=== PATIENT | male | born 1955 | race African-American/Black ===

== ENCOUNTER 2017-06-21 16:47 | Emergency (ER) | payer MEDICAID ==
[~2017-06-21] VITALS: Ht 177.8 cm; Wt 78.0 kg
[~2017-06-21 16:47] MED LIST: ALPR0.5T PO; AMLO2.5T45 PO; ATEN50TA PO; AZILECT PO; BENA20TA3 PO; METF500T4 PO; REQ1 PO; RYTARY PO
[2017-06-21 21:55] VITALS: BP 152/94
== END 2017-06-21 22:09 | disposition home or self-care (01) ==
LOC: ER 17:04
DX: F41.0 Panic disorder [episodic paroxysmal anxiety] (principal); E11.9 Type 2 diabetes mellitus without complications; I10 Essential (primary) hypertension; G20 Parkinson's disease
CPT/HCPCS: 93005; 99283

== ENCOUNTER 2018-06-03 19:52 | Inpatient (IN) | payer MEDICAID ==
[~2018-06-03] VITALS: Ht 185.4 cm; Wt 86.6 kg
[~2018-06-03 19:52] MED LIST changes: +BENA20TA10 PO; -BENA20TA3 PO; -METF500T4 PO; +METF500T6 PO
[2018-06-03] MEDS ORDERED: SODIUM CHLORIDE 0.9% 1,000 ML IV ONE (21:52)
[2018-06-03 22:10] LABS: BASOPHILS % 0.2 % (0.0-2.0); EOSINOPHILS % 0.9 % (0.0-5.0); HEMATOCRIT. 27.9 % (42.0-52.0); HEMOGLOBIN. 9.7 g/dL (14.0-18.0); LYMPHOCYTES % 7.1 % (20.0-50.0); MEAN CORPUSCULAR HEMOGLOBIN 32.4 pg (28.0-32.0); MEAN CORPUSCULAR VOLUME 93.6 fL (80.0-94.0); MEAN PLATELET VOLUME 7.7 fl (7.4-10.4); MONOCYTES % 9.9 % (2.0-8.0); NEUTROPHILS % 81.9 % (40.0-76.0); PLATELET 183 x1000/uL (130-400); RED BLOOD CELL COUNT 2.98 mill/uL (4.7-6.1); RED CELL DISTRIBUTION WIDTH 11.9 % (11.6-14.6)
[2018-06-03 22:15] LABS: CHLORIDE 98 mEq/L (98-107)
[2018-06-03 22:20] LABS: INR 1.1; PROTHROMBIN TIME 10.6 sec (9.1-11.1)
[2018-06-03 23:09] LABS: CLARITY URINE CLOUDY (CLEAR); COLOR URINE YELLOW (YELLOW); KETONES URINE NEGATIVE (NEGATIVE); LEUKOCYTE ESTERASE URINE TRACE (NEGATIVE); NITRITE URINE NEGATIVE (NEGATIVE); OCCULT BLOOD URINE 3+ (NEGATIVE); PROTEIN URINE 3+ (NEGATIVE); SPECIFIC GRAVITY URINE 1.012 (1.005-1.030)
[2018-06-04] MEDS ORDERED: LEVOFLOXACIN 750MG PREMIX 150 ML IV ONE (01:00)
[2018-06-04] MEDS ORDERED: SODIUM CHLORIDE 0.9% 500 ML IV SCH (04:30)
[2018-06-04 06:17] VITALS: BP 129/75
[2018-06-04 08:00] VITALS: BP 121/61
[2018-06-04] MEDS: PIPERACILLIN/TAZ 3.375G PREMIX 50 ML IV SCH ×3 (08:32→21:46)
[2018-06-04] MEDS ORDERED: ACETAMINOPHEN 325MG TABLET PO PRN (09:30)
[2018-06-04 12:00] VITALS: BP 115/48
[2018-06-04] MEDS ORDERED: SODIUM CHLORIDE 0.45% 1,000 ML IV SCH (15:18)
[2018-06-04] MEDS ORDERED: IPRATROPIUM/ALBUTEROL 0.5-3(2.5)MG/3ML NEB INH PRN (15:30)
[2018-06-04] MEDS ORDERED: ONDANSETRON HCL 4MG/2ML INJ IV PRN (15:30)
[2018-06-04] MEDS ORDERED: HYDROCODONE/ACETAMINOPHEN 5/325MG TABLET PO PRN (15:30)
[2018-06-04] MEDS ORDERED: CLONIDINE 0.1MG TABLET PO PRN (15:30)
[2018-06-04 16:00] VITALS: BP 117/49
[2018-06-04] MEDS: ENOXAPARIN 40MG/0.4ML SYR SUBCUT SCH (16:00)
[2018-06-04] MEDS: ROPINIROLE HCL 1MG TABLET PO SCH (17:48)
[2018-06-04] MEDS: RYTARY PO SCH ×2 (17:49→21:46)
[2018-06-04] MEDS: DEXT 5%/0.45% NACL 1000ML 1,000 ML IV SCH (19:39)
[2018-06-04 20:00] VITALS: BP 129/67
[2018-06-04] MEDS ORDERED: DEXTROSE 50% WATER 50ML SYRINGE IV PRN (20:15)
[2018-06-04] MEDS: INSULIN LISPRO 100 UNITS/ML SUBCUT SCH (21:00)
[2018-06-04] MEDS: BLOOD SUGAR DIAGNOSTIC STRIP TEST SCH (21:46)
[2018-06-05] VITALS: BP 125/60
[2018-06-05 00:27] LABS: CHLORIDE 103 mEq/L (98-107)
[2018-06-05 00:36] LABS: CREATINE KINASE 322 IU/L (39-308)
[2018-06-05] MEDS: PIPERACILLIN/TAZ 3.375G PREMIX 50 ML IV SCH ×4 (03:32→21:05)
[2018-06-05 04:00] VITALS: BP 112/82
[2018-06-05] MEDS: RYTARY PO SCH ×6 (06:05→21:12)
[2018-06-05] MEDS: INSULIN LISPRO 100 UNITS/ML SUBCUT SCH ×4 (06:17→21:16)
[2018-06-05] MEDS: BLOOD SUGAR DIAGNOSTIC STRIP TEST SCH ×4 (06:17→21:12)
[2018-06-05 08:00] VITALS: BP 144/71
[2018-06-05 08:09] LABS: HEMATOCRIT. 24.5 % (42.0-52.0); HEMOGLOBIN. 8.6 g/dL (14.0-18.0); MEAN CORPUSCULAR HEMOGLOBIN 33.1 pg (28.0-32.0); MEAN CORPUSCULAR VOLUME 94.5 fL (80.0-94.0); MEAN PLATELET VOLUME 7.7 fl (7.4-10.4); PLATELET 149 x1000/uL (130-400); RED BLOOD CELL COUNT 2.59 mill/uL (4.7-6.1); RED CELL DISTRIBUTION WIDTH 11.7 % (11.6-14.6)
[2018-06-05] MEDS: ROPINIROLE HCL 1MG TABLET PO SCH ×3 (09:18→18:10)
[2018-06-05] MEDS: RASAGILINE 1 MG PO SCH (09:22)
[2018-06-05 09:52] LABS: T4 FREE 1.77 ng/dL (0.76-1.46)
[2018-06-05 12:00] VITALS: BP 122/58
[2018-06-05] MEDS: DEXT 5%/0.45% NACL 1000ML 1,000 ML IV SCH (12:30)
[2018-06-05 15:23] LABS: BG BASE EXCESS 1.8 mmol/L (-2.0-2.0); BG CARBOXYHEMOGLOBIN 0.3 % (0.5-1.5); BG DEOXYHEMOGLOBIN 6.9 % (0.0-5.0); BG FRACTION INSPIRED OXYGEN 21; BG HCO3 ACT 25.6 mmol/L (22.0-26.0); BG METHEMOGLOBIN 0.3 % (0.0-1.5); BG OXYGEN SATURATION 93.1 % (92.0-98.5); BG OXYHEMOGLOBIN 92.5 % (94.0-97.0); BG PCO2 36.5 mmHg (35.0-45.0); BG PH 7.463 (7.350-7.450); BG PO2 65.3 mmHg (75.0-100.0); BG SAMPLE SITE RIGHT RADIAL; BG TOTAL HEMOGLOBIN 9.4 g/dL (12.0-18.0); BG VENT MODE ROOM AIR
[2018-06-05 16:00] VITALS: BP 126/60
[2018-06-05 16:21] LABS: PLATELET ESTIMATE NORMAL
[2018-06-05] MEDS: ENOXAPARIN 40MG/0.4ML SYR SUBCUT SCH (17:04)
[2018-06-05 17:22] LABS: CHLORIDE 103 mEq/L (98-107)
[2018-06-05 20:00] VITALS: BP 128/62
[2018-06-06] VITALS: BP 126/57
[2018-06-06] MEDS: DEXT 5%/0.45% NACL 1000ML 1,000 ML IV SCH ×2 (00:25→16:53)
[2018-06-06] MEDS: PIPERACILLIN/TAZ 3.375G PREMIX 50 ML IV SCH ×4 (03:05→20:20)
[2018-06-06 04:00] VITALS: BP 132/57
[2018-06-06] MEDS: RYTARY PO SCH ×6 (06:27→22:26)
[2018-06-06] MEDS: INSULIN LISPRO 100 UNITS/ML SUBCUT SCH ×4 (06:35→20:30)
[2018-06-06] MEDS: BLOOD SUGAR DIAGNOSTIC STRIP TEST SCH ×4 (06:35→20:30)
[2018-06-06 08:00] VITALS: BP 114/54
[2018-06-06 08:16] LABS: HEMATOCRIT 26.2 % (42.0-52.0); HEMOGLOBIN 8.9 g/dL (14.0-18.0); MEAN CORPUSCULAR HEMOGLOBIN 32.1 pg (28.0-32.0); MEAN CORPUSCULAR VOLUME 94.6 fL (80.0-94.0); PLATELET 163 x1000/uL (130-400); RED BLOOD CELL COUNT 2.76 mill/uL (4.7-6.1); RED CELL DISTRIBUTION WIDTH 11.8 % (11.6-14.6)
[2018-06-06] MEDS ORDERED: DIATR MEGLU/DIATRIZOATE SOLN 30ML PO SCH (08:30)
[2018-06-06] MEDS: ROPINIROLE HCL 1MG TABLET PO SCH ×3 (08:59→19:02)
[2018-06-06] MEDS: RASAGILINE 1 MG PO SCH (09:00)
[2018-06-06 09:08] LABS: CHLORIDE 104 mEq/L (98-107)
[2018-06-06] MEDS: OMEPRAZOLE 20MG CAPSULE EXTENDED RELEASE PO SCH (09:08)
[2018-06-06 09:44] LABS: TOTAL IRON BINDING CAPACITY 216 ug/dL (250-450)
[2018-06-06 12:00] VITALS: BP 136/61
[2018-06-06 13:16] LABS: FERRITIN 788 ng/mL (22-322)
[2018-06-06 13:20] LABS: FOLIC ACID (FOLATE) SERUM >20 ng/mL ng/mL (>5.38)
[2018-06-06] MEDS ORDERED: DOCUSATE SODIUM SUGAR FREE 100MG/10ML UDC NG SCH (13:30)
[2018-06-06 13:31] LABS: VITAMIN B12 SERUM 620 pg/mL (211-911)
[2018-06-06] MEDS ORDERED: IOHEXOL-300 100 ML BOTTLE ONE (14:33)
[2018-06-06 16:00] VITALS: BP 132/65
[2018-06-06] MEDS: ENOXAPARIN 40MG/0.4ML SYR SUBCUT SCH (16:49)
[2018-06-06] MEDS: FERROUS SULFATE 325MG TABLET PO SCH (19:02)
[2018-06-06 20:00] VITALS: BP 139/70
[2018-06-06] MEDS ORDERED: BISACODYL 5MG TABLET PO NR (20:00)
[2018-06-06] MEDS ORDERED: METOCLOPRAMIDE HCL 10MG/2ML VIAL IV NR (20:00)
[2018-06-06] MEDS ORDERED: SORBITOL 70% SOLN 30ML PO NR (21:00)
[2018-06-07] VITALS: BP 136/70
[2018-06-07] MEDS ORDERED: SORBITOL 70% SOLN 30ML PO NR ×3 (01:00→22:30)
[2018-06-07] MEDS ORDERED: BISACODYL 5MG TABLET PO NR ×3 (03:30→21:07)
[2018-06-07] MEDS ORDERED: METOCLOPRAMIDE HCL 10MG/2ML VIAL IV NR ×3 (03:30→22:00)
[2018-06-07] MEDS: PIPERACILLIN/TAZ 3.375G PREMIX 50 ML IV SCH ×4 (03:35→21:33)
[2018-06-07 04:00] VITALS: BP 142/82
[2018-06-07] MEDS: ACETAMINOPHEN 325MG TABLET PO PRN (04:50)
[2018-06-07] MEDS: OMEPRAZOLE 20MG CAPSULE EXTENDED RELEASE PO SCH (06:22)
[2018-06-07] MEDS: RYTARY PO SCH ×3 (06:22→22:12)
[2018-06-07] MEDS: BLOOD SUGAR DIAGNOSTIC STRIP TEST SCH ×4 (06:22→21:33)
[2018-06-07] MEDS: FERROUS SULFATE 325MG TABLET PO SCH ×3 (06:23→18:04)
[2018-06-07] MEDS: INSULIN LISPRO 100 UNITS/ML SUBCUT SCH ×4 (06:23→21:00)
[2018-06-07 07:21] LABS: INR 1.1; PARTIAL THROMBOPLASTIN TIME 30.6 sec (23.4-31.0); PROTHROMBIN TIME 11.4 sec (9.1-11.1)
[2018-06-07 07:40] LABS: HEMATOCRIT 24.3 % (42.0-52.0); HEMOGLOBIN 8.4 g/dL (14.0-18.0); MEAN CORPUSCULAR HEMOGLOBIN 32.2 pg (28.0-32.0); MEAN CORPUSCULAR VOLUME 93.6 fL (80.0-94.0); PLATELET 163 x1000/uL (130-400); RED BLOOD CELL COUNT 2.59 mill/uL (4.7-6.1); RED CELL DISTRIBUTION WIDTH 11.9 % (11.6-14.6)
[2018-06-07 08:00] VITALS: BP 144/66
[2018-06-07 08:13] LABS: CHLORIDE 104 mEq/L (98-107)
[2018-06-07] MEDS: ROPINIROLE HCL 1MG TABLET PO SCH ×3 (09:00→18:05)
[2018-06-07] MEDS ORDERED: MIDAZOLAM HCL 5 MG/5 ML VIAL ONE (14:38)
[2018-06-07] MEDS ORDERED: FENTANYL CITRATE/PF 50MCG/ML 2ML VIAL ONE (14:40)
[2018-06-07] MEDS: RASAGILINE 1 MG PO SCH (15:12)
[2018-06-07 16:00] VITALS: BP 138/75
[2018-06-07] MEDS: ENOXAPARIN 40MG/0.4ML SYR SUBCUT SCH (16:00)
[2018-06-07] MEDS ORDERED: POLYETHYLENE GLYCOL-ELECTROLYTE 4000ML NG ONE (16:30)
[2018-06-07] MEDS ORDERED: SORBITOL 70% SOLN 30ML PO SCH (16:30)
[2018-06-07] MEDS: DEXT 5%/0.45% NACL 1000ML 1,000 ML IV SCH (16:39)
[2018-06-07 20:00] VITALS: BP 147/77
[2018-06-07] MEDS ORDERED: POTASSIUM CHLORIDE 20MEQ/PACKET PO NR (21:13)
[2018-06-07] MEDS ORDERED: LORAZEPAM 2MG/ML CPJ IV PRN (21:45)
[2018-06-07] MEDS: DEXT 5%/0.45% NACL KCL 20MEQ/L 1,000 ML IV SCH (22:11)
[2018-06-08] VITALS: BP 156/79
[2018-06-08] MEDS: PIPERACILLIN/TAZ 3.375G PREMIX 50 ML IV SCH ×4 (02:00→21:45)
[2018-06-08 04:00] VITALS: BP 139/65
[2018-06-08] MEDS: ACETAMINOPHEN 325MG TABLET PO PRN (04:10)
[2018-06-08 05:43] LABS: HEMATOCRIT. 24.7 % (42.0-52.0); HEMOGLOBIN. 8.6 g/dL (14.0-18.0); MEAN CORPUSCULAR HEMOGLOBIN 32.8 pg (28.0-32.0); MEAN CORPUSCULAR VOLUME 93.7 fL (80.0-94.0); MEAN PLATELET VOLUME 7.6 fl (7.4-10.4); PLATELET 172 x1000/uL (130-400); RED BLOOD CELL COUNT 2.63 mill/uL (4.7-6.1); RED CELL DISTRIBUTION WIDTH 11.6 % (11.6-14.6)
[2018-06-08 05:59] LABS: CHLORIDE 112 mEq/L (98-107)
[2018-06-08] MEDS: BLOOD SUGAR DIAGNOSTIC STRIP TEST SCH ×4 (06:04→21:00)
[2018-06-08] MEDS: INSULIN LISPRO 100 UNITS/ML SUBCUT SCH ×4 (06:04→21:00)
[2018-06-08 06:55] LABS: BG BASE EXCESS 1.6 mmol/L (-2.0-2.0); BG DEOXYHEMOGLOBIN 4.8 % (0.0-5.0); BG HCO3 ACT 25.5 mmol/L (22.0-26.0); BG METHEMOGLOBIN 0.3 % (0.0-1.5); BG OXYGEN SATURATION 95.2 % (92.0-98.5); BG OXYHEMOGLOBIN 94.9 % (94.0-97.0); BG PCO2 36.7 mmHg (35.0-45.0); BG PH 7.459 (7.350-7.450); BG PO2 77.2 mmHg (75.0-100.0); BG SAMPLE SITE RIGHT RADIAL; BG TOTAL HEMOGLOBIN 8.7 g/dL (12.0-18.0); BG VENT MODE NASAL CANNULA
[2018-06-08] MEDS: FERROUS SULFATE 325MG TABLET PO SCH ×3 (07:15→17:14)
[2018-06-08 08:00] VITALS: BP 133/49
[2018-06-08] MEDS: FAMOTIDINE 20MG TABLET PO SCH ×2 (08:37→21:45)
[2018-06-08] MEDS: RASAGILINE 1 MG PO SCH (08:38)
[2018-06-08] MEDS: ROPINIROLE HCL 1MG TABLET PO SCH ×3 (08:38→17:05)
[2018-06-08] MEDS ORDERED: NA PHOS,M-B/NA PHOS,DI-BA ENEMA 118ML PR NR (09:00)
[2018-06-08] MEDS ORDERED: SIMETHICONE 40 MG/0.6 ML 30ML ONE ×2 (11:51→13:16)
[2018-06-08 12:00] VITALS: BP 145/62
[2018-06-08] MEDS ORDERED: MIDAZOLAM HCL 5 MG/5 ML VIAL ONE ×2 (12:45→14:17)
[2018-06-08] MEDS ORDERED: DIPHENHYDRAMINE 50MG/ML VIAL ONE (12:45)
[2018-06-08] MEDS ORDERED: FENTANYL CITRATE/PF 50MCG/ML 2ML VIAL ONE (12:46)
[2018-06-08] MEDS ORDERED: MIDAZOLAM HCL 2 MG/2 ML VIAL IV PRN (12:59)
[2018-06-08] MEDS ORDERED: FENTANYL CITRATE/PF 50MCG/ML 2ML VIAL IV PRN (13:00)
[2018-06-08] MEDS ORDERED: BACTERIOSTATIC SODIUM CHLORIDE 0.9% 30ML VIAL IJ ONE (13:16)
[2018-06-08 13:27] LABS: PLATELET ESTIMATE NORMAL
[2018-06-08 16:00] VITALS: BP 113/65
[2018-06-08] MEDS: DEXT 5%/0.45% NACL KCL 20MEQ/L 1,000 ML IV SCH (17:05)
[2018-06-08] MEDS: ENOXAPARIN 40MG/0.4ML SYR SUBCUT SCH (17:05)
[2018-06-08 19:55] LABS: CLARITY URINE CLOUDY (CLEAR); COLOR URINE YELLOW (YELLOW); KETONES URINE TRACE (NEGATIVE); LEUKOCYTE ESTERASE URINE NEGATIVE (NEGATIVE); NITRITE URINE NEGATIVE (NEGATIVE); OCCULT BLOOD URINE 2+ (NEGATIVE); PH URINE 5.5 (4.5-8.0); PROTEIN URINE 3+ (NEGATIVE); SPECIFIC GRAVITY URINE 1.026 (1.005-1.030); UROBILINOGEN URINE 0.2 E.U./dL (0.2-1.0)
[2018-06-08 20:00] VITALS: BP 131/66
[2018-06-09] VITALS: BP 149/85
[2018-06-09] MEDS: DEXT 5%/0.45% NACL KCL 20MEQ/L 1,000 ML IV SCH (01:13)
[2018-06-09 04:00] VITALS: BP 181/75
[2018-06-09] MEDS: PIPERACILLIN/TAZ 3.375G PREMIX 50 ML IV SCH ×2 (04:58→09:37)
[2018-06-09] MEDS: BLOOD SUGAR DIAGNOSTIC STRIP TEST SCH ×2 (06:45→12:38)
[2018-06-09] MEDS: INSULIN LISPRO 100 UNITS/ML SUBCUT SCH ×2 (06:50→12:15)
[2018-06-09 07:48] LABS: BASOPHILS % 0.4 % (0.0-2.0); EOSINOPHILS % 2.2 % (0.0-5.0); HEMATOCRIT. 23.9 % (42.0-52.0); HEMOGLOBIN. 8.2 g/dL (14.0-18.0); LYMPHOCYTES % 7.5 % (20.0-50.0); MEAN CORPUSCULAR HEMOGLOBIN 32.5 pg (28.0-32.0); MEAN CORPUSCULAR VOLUME 94.7 fL (80.0-94.0); MEAN PLATELET VOLUME 7.2 fl (7.4-10.4); MONOCYTES % 8.3 % (2.0-8.0); NEUTROPHILS % 81.6 % (40.0-76.0); PLATELET 163 x1000/uL (130-400); RED BLOOD CELL COUNT 2.52 mill/uL (4.7-6.1); RED CELL DISTRIBUTION WIDTH 11.9 % (11.6-14.6)
[2018-06-09 08:00] VITALS: BP 148/57
[2018-06-09 09:34] LABS: CHLORIDE 112 mEq/L (98-107)
[2018-06-09] MEDS: FAMOTIDINE 20MG TABLET PO SCH (09:37)
[2018-06-09] MEDS: FERROUS SULFATE 325MG TABLET PO SCH ×2 (09:37→13:08)
[2018-06-09] MEDS: ROPINIROLE HCL 1MG TABLET PO SCH ×2 (09:37→13:08)
[2018-06-09] MEDS: RASAGILINE 1 MG PO SCH (09:37)
[2018-06-09 12:00] VITALS: BP 130/74
[2018-06-09 16:00] VITALS: BP 151/67
[2018-06-09 16:25] VITALS: BP 151/67
== END 2018-06-09 18:30 | disposition home or self-care (01) | DRG 720 ==
LOC: ER 19:52 → 5WST 06-04 01:38 → EDBEDREQSVC 06-04 01:41 → EDBEDREQTM 06-04 01:41 → EDBEDREQ 06-04 01:41 → ENRESERV 06-04 04:10
PROVIDERS: ADMIT Internal Medicine; ATTEND Internal Medicine
PROC: 0DBL8ZX Excision of Transverse Colon, Via Natural or Artificial Opening Endoscopic, Diagnostic (ICD-10-PCS; 2018-06-08)
PROC: 0DBB8ZX Excision of Ileum, Via Natural or Artificial Opening Endoscopic, Diagnostic (ICD-10-PCS; 2018-06-08)
PROC: 0DBC8ZX Excision of Ileocecal Valve, Via Natural or Artificial Opening Endoscopic, Diagnostic (ICD-10-PCS; principal; 2018-06-08 12:00)
DX: A41.9 Sepsis, unspecified organism (principal); J69.0 Pneumonitis due to inhalation of food and vomit; G93.49 Other encephalopathy; K75.0 Abscess of liver; R16.0 Hepatomegaly, not elsewhere classified; G20 Parkinson's disease; E11.9 Type 2 diabetes mellitus without complications; D64.9 Anemia, unspecified; F02.80 Dementia in other diseases classified elsewhere, unspecified severity, without behavioral disturbance, psychotic disturbance, mood disturbance, and anxiety; E61.1 Iron deficiency; I10 Essential (primary) hypertension; F41.9 Anxiety disorder, unspecified; F17.210 Nicotine dependence, cigarettes, uncomplicated; K63.89 Other specified diseases of intestine; D72.829 Elevated white blood cell count, unspecified; R93.2 Abnormal findings on diagnostic imaging of liver and biliary tract; Z87.440 Personal history of urinary (tract) infections; Z82.49 Family history of ischemic heart disease and other diseases of the circulatory system; Z79.899 Other long term (current) drug therapy; Z88.8 Allergy status to other drugs, medicaments and biological substances
CPT/HCPCS: 36415; 36600; 71045; 74177; 74181; 76700; 80048; 80053; 80061; 80076; 81003; 82105; 82270; 82375; 82378; 82550; 82607; 82728; 82746; 82805; 82962; 83540; 83550; 83605; 84153; 84439; 84443; 84484; 85025; 85027; 85610; 85730; 87040; 87086; 88305; 92610; 93005; 96361; 96365; 99285; A6261; J1200; J1650; J1815; J1956; J2250; J2543; J2765; J3010; J3490; J7030; J7040; Q9963; Q9967; A4315; G0103

== ENCOUNTER 2018-12-16 19:13 | Inpatient (IN) | payer MEDICAID ==
[~2018-12-16] VITALS: Ht 185.4 cm; Wt 91.9 kg
[~2018-12-16 19:13] MED LIST changes: +METF-414 PO; -METF500T6 PO
[2018-12-16 21:39] LABS: BASOPHILS % 0.4 % (0.0-2.0); EOSINOPHILS % 2.3 % (0.0-5.0); HEMATOCRIT. 36.3 % (42.0-52.0); HEMOGLOBIN. 12.1 g/dL (14.0-18.0); LYMPHOCYTES % 16.1 % (20.0-50.0); MEAN CORPUSCULAR HEMOGLOBIN 32.7 pg (28.0-32.0); MEAN CORPUSCULAR VOLUME 97.8 fL (80.0-94.0); NEUTROPHILS % 73.2 % (40.0-76.0); PLATELET 105 x1000/uL (130-400); RED BLOOD CELL COUNT 3.71 mill/uL (4.7-6.1); RED CELL DISTRIBUTION WIDTH 14.8 % (11.6-14.6)
[2018-12-16 21:43] LABS: CHLORIDE 109 mEq/L (98-107)
[2018-12-16] MEDS ORDERED: SODIUM CHLORIDE 0.9% 1,000 ML IV ONE (22:29)
[2018-12-16] MEDS ORDERED: SODIUM POLYSTYRENE SULFONATE 15 G/60 ML BOT PO NR (22:30)
[2018-12-16] MEDS ORDERED: DEXTROSE 50% WATER 50ML SYRINGE IV NR (22:30)
[2018-12-16] MEDS ORDERED: INSULIN REGULAR (HUMULIN R) 300UNITS/3ML IV NR (22:30)
[2018-12-16] MEDS ORDERED: SODIUM BICARBONATE 8.4% 1 MEQ/ML 50ML SYR IV NR (22:30)
[2018-12-16] MEDS: CALCIUM CHLORIDE 1GM/10ML SYR IV NR ×2 (23:05→23:29)
[2018-12-17 04:10] LABS: CLARITY URINE CLEAR (CLEAR); COLOR URINE YELLOW (YELLOW); KETONES URINE NEGATIVE (NEGATIVE); LEUKOCYTE ESTERASE URINE NEGATIVE (NEGATIVE); NITRITE URINE NEGATIVE (NEGATIVE); OCCULT BLOOD URINE NEGATIVE (NEGATIVE); PROTEIN URINE 3+ (NEGATIVE); SPECIFIC GRAVITY URINE 1.015 (1.005-1.030); UROBILINOGEN URINE 0.2 E.U./dL (0.2-1.0)
[2018-12-17] MEDS ORDERED: SODIUM CHLORIDE 0.9% 1,000 ML IV SCH (09:00)
[2018-12-17] MEDS ORDERED: ONDANSETRON HCL 4MG/2ML INJ IV PRN (09:00)
[2018-12-17 09:24] LABS: CHLORIDE 111 mEq/L (98-107)
[2018-12-17] MEDS ORDERED: SODIUM POLYSTYRENE SULFONATE 15 G/60 ML BOT PO SCH (09:45)
[2018-12-17] MEDS ORDERED: GUAIFENESIN-DM 200MG-20MG/10ML UDC PO PRN (10:45)
[2018-12-17] MEDS: IPRATROPIUM/ALBUTEROL 0.5-3(2.5)MG/3ML NEB HHN PRN (12:05)
[2018-12-17 16:45] VITALS: BP 148/79
[2018-12-17] MEDS: AMLODIPINE 5MG TABLET PO SCH (17:13)
[2018-12-17 17:30] VITALS: BP 148/79
[2018-12-17] MEDS ORDERED: HYDRALAZINE 20MG/ML VIAL IV PRN (18:30)
[2018-12-17] MEDS ORDERED: MORPHINE SULFATE 4 MG/ML CPJ (NOT FOR IM USE) IV PRN (18:45)
[2018-12-17] MEDS: DEXT 5%/0.45% NACL 1000ML 1,000 ML IV SCH (19:48)
[2018-12-17 20:00] VITALS: BP 131/82
[2018-12-17] MEDS: ENOXAPARIN 40MG/0.4ML SYR SUBCUT SCH (20:07)
[2018-12-17] MEDS: GUAIFENESIN 600MG ER TABLET PO SCH (21:00)
[2018-12-17] MEDS: ROPINIROLE HCL 1MG TABLET PO SCH (22:00)
[2018-12-17] MEDS ORDERED: MEDICATION NOT ON FORMULARY EA (Amlodipine Besylate 1 TAB) PO SCH (22:00)
[2018-12-18] VITALS: BP 127/63
[2018-12-18 04:00] VITALS: BP 150/73
[2018-12-18] MEDS: ROPINIROLE HCL 1MG TABLET PO SCH ×3 (06:00→22:00)
[2018-12-18] MEDS ORDERED: RYTARY PO SCH (06:00)
[2018-12-18] MEDS: ATENOLOL 50 MG TABLET PO SCH (06:00)
[2018-12-18 06:02] LABS: BASOPHILS % 0.4 % (0.0-2.0); EOSINOPHILS % 0.5 % (0.0-5.0); HEMATOCRIT. 32.7 % (42.0-52.0); HEMOGLOBIN. 10.7 g/dL (14.0-18.0); LYMPHOCYTES % 11.5 % (20.0-50.0); MEAN CORPUSCULAR HEMOGLOBIN 31.9 pg (28.0-32.0); MEAN CORPUSCULAR VOLUME 97.1 fL (80.0-94.0); MEAN PLATELET VOLUME 7.6 fl (7.4-10.4); MONOCYTES % 8.8 % (2.0-8.0); NEUTROPHILS % 78.8 % (40.0-76.0); PLATELET 115 x1000/uL (130-400); RED BLOOD CELL COUNT 3.36 mill/uL (4.7-6.1); RED CELL DISTRIBUTION WIDTH 14.7 % (11.6-14.6)
[2018-12-18 08:00] VITALS: BP 135/71
[2018-12-18] MEDS: AMLODIPINE 5MG TABLET PO SCH (09:00)
[2018-12-18] MEDS: RASAGILINE MESYLATE 0.5 MG PO SCH (09:00)
[2018-12-18] MEDS: RYTARY PO SCH ×3 (09:00→16:55)
[2018-12-18] MEDS: GUAIFENESIN 600MG ER TABLET PO SCH ×2 (09:00→21:00)
[2018-12-18] MEDS ORDERED: ROPINIROLE HCL 1MG TABLET PO SCH (09:00)
[2018-12-18 12:00] VITALS: BP 148/70
[2018-12-18] MEDS: DEXT 5%/0.45% NACL 1000ML 1,000 ML IV SCH (12:59)
[2018-12-18 16:00] VITALS: BP 130/74
[2018-12-18 20:00] VITALS: BP 124/65
[2018-12-18] MEDS: ENOXAPARIN 40MG/0.4ML SYR SUBCUT SCH (20:15)
[2018-12-19] VITALS: BP 128/58
[2018-12-19] MEDS: DEXT 5%/0.45% NACL 1000ML 1,000 ML IV SCH (02:27)
[2018-12-19 04:00] VITALS: BP 126/63
[2018-12-19] MEDS: ROPINIROLE HCL 1MG TABLET PO SCH ×3 (05:26→21:41)
[2018-12-19] MEDS: ATENOLOL 50 MG TABLET PO SCH (05:26)
[2018-12-19 06:51] LABS: BASOPHILS % 0.3 % (0.0-2.0); EOSINOPHILS % 0.9 % (0.0-5.0); HEMATOCRIT. 29.7 % (42.0-52.0); HEMOGLOBIN. 9.9 g/dL (14.0-18.0); LYMPHOCYTES % 15.1 % (20.0-50.0); MEAN CORPUSCULAR HEMOGLOBIN 32.7 pg (28.0-32.0); MEAN CORPUSCULAR VOLUME 97.6 fL (80.0-94.0); MEAN PLATELET VOLUME 8.3 fl (7.4-10.4); MONOCYTES % 12.2 % (2.0-8.0); NEUTROPHILS % 71.5 % (40.0-76.0); PLATELET 114 x1000/uL (130-400); RED BLOOD CELL COUNT 3.04 mill/uL (4.7-6.1); RED CELL DISTRIBUTION WIDTH 14.5 % (11.6-14.6)
[2018-12-19 08:00] VITALS: BP 138/66
[2018-12-19] MEDS: RASAGILINE MESYLATE 0.5 MG PO SCH (09:58)
[2018-12-19] MEDS: RYTARY PO SCH ×3 (09:58→18:20)
[2018-12-19] MEDS: GUAIFENESIN 600MG ER TABLET PO SCH ×2 (09:58→21:41)
[2018-12-19] MEDS: AMLODIPINE 5MG TABLET PO SCH (09:58)
[2018-12-19 12:00] VITALS: BP 128/68
[2018-12-19 16:00] VITALS: BP 121/62
[2018-12-19 20:00] VITALS: BP 110/55
[2018-12-19] MEDS: ENOXAPARIN 40MG/0.4ML SYR SUBCUT SCH (21:41)
[2018-12-20] VITALS: BP 113/65
[2018-12-20] MEDS: IPRATROPIUM/ALBUTEROL 0.5-3(2.5)MG/3ML NEB HHN PRN (00:15)
[2018-12-20 04:00] VITALS: BP 113/66
[2018-12-20] MEDS: ATENOLOL 50 MG TABLET PO SCH (05:52)
[2018-12-20] MEDS: ROPINIROLE HCL 1MG TABLET PO SCH ×4 (05:52→22:39)
[2018-12-20 06:27] LABS: BASOPHILS % 0.2 % (0.0-2.0); EOSINOPHILS % 0.8 % (0.0-5.0); HEMATOCRIT. 32.3 % (42.0-52.0); HEMOGLOBIN. 10.7 g/dL (14.0-18.0); LYMPHOCYTES % 7.3 % (20.0-50.0); MEAN CORPUSCULAR HEMOGLOBIN 32.5 pg (28.0-32.0); MEAN CORPUSCULAR VOLUME 97.8 fL (80.0-94.0); MEAN PLATELET VOLUME 7.8 fl (7.4-10.4); MONOCYTES % 9.5 % (2.0-8.0); NEUTROPHILS % 82.2 % (40.0-76.0); PLATELET 123 x1000/uL (130-400); RED CELL DISTRIBUTION WIDTH 14.2 % (11.6-14.6)
[2018-12-20 08:00] VITALS: BP 127/67
[2018-12-20] MEDS: RASAGILINE MESYLATE 0.5 MG PO SCH ×2 (09:00→17:49)
[2018-12-20] MEDS: AMLODIPINE 5MG TABLET PO SCH (09:00)
[2018-12-20] MEDS: GUAIFENESIN 600MG ER TABLET PO SCH ×2 (09:00→20:25)
[2018-12-20] MEDS: RYTARY PO SCH ×3 (09:00→17:47)
[2018-12-20] MEDS: ZINC SULFATE 220 MG ( 50 ) CAPSULE PO SCH (09:00)
[2018-12-20] MEDS: MULTIVITAMINS,THER W-MINERALS TABLET PO SCH (09:00)
[2018-12-20] MEDS: ASCORBIC ACID 250 MG TABLET PO SCH ×2 (09:00→20:26)
[2018-12-20] MEDS: DEXT 5%/0.45% NACL 1000ML 1,000 ML IV SCH ×2 (10:21→20:29)
[2018-12-20 16:00] VITALS: BP 128/57
[2018-12-20] MEDS: ACETAMINOPHEN 325MG TABLET PO PRN (17:49)
[2018-12-20 20:00] VITALS: BP 100/66
[2018-12-20] MEDS: ENOXAPARIN 40MG/0.4ML SYR SUBCUT SCH (20:29)
[2018-12-20] MEDS: CEFEPIME 1,000 MG in DEXTROSE 5% WATER 50 ML IV SCH (20:29)
[2018-12-20] MEDS: METRONIDAZOLE 500 MG PREMIX 100 ML IV SCH (22:45)
[2018-12-21] VITALS: BP 126/46
[2018-12-21 04:00] VITALS: BP 121/51
[2018-12-21 05:08] LABS: CLARITY URINE CLOUDY (CLEAR); COLOR URINE DARK YELLOW (YELLOW); KETONES URINE TRACE (NEGATIVE); LEUKOCYTE ESTERASE URINE NEGATIVE (NEGATIVE); NITRITE URINE NEGATIVE (NEGATIVE); OCCULT BLOOD URINE NEGATIVE (NEGATIVE); PROTEIN URINE 3+ (NEGATIVE); SPECIFIC GRAVITY URINE 1.022 (1.005-1.030)
[2018-12-21 05:52] LABS: BASOPHILS % 0.3 % (0.0-2.0); EOSINOPHILS % 0.6 % (0.0-5.0); HEMATOCRIT. 28.7 % (42.0-52.0); HEMOGLOBIN. 9.6 g/dL (14.0-18.0); MEAN CORPUSCULAR HEMOGLOBIN 32.8 pg (28.0-32.0); MEAN CORPUSCULAR VOLUME 98.2 fL (80.0-94.0); MEAN PLATELET VOLUME 8.2 fl (7.4-10.4); MONOCYTES % 11.3 % (2.0-8.0); NEUTROPHILS % 79.8 % (40.0-76.0); PLATELET 134 x1000/uL (130-400); RED BLOOD CELL COUNT 2.92 mill/uL (4.7-6.1); RED CELL DISTRIBUTION WIDTH 13.9 % (11.6-14.6)
[2018-12-21] MEDS: ATENOLOL 50 MG TABLET PO SCH (05:54)
[2018-12-21] MEDS: ROPINIROLE HCL 1MG TABLET PO SCH ×3 (05:54→21:20)
[2018-12-21] MEDS: METRONIDAZOLE 500 MG PREMIX 100 ML IV SCH ×3 (05:57→21:19)
[2018-12-21 08:00] VITALS: BP 125/57
[2018-12-21] MEDS: RYTARY PO SCH ×3 (10:26→18:10)
[2018-12-21] MEDS: CEFEPIME 1,000 MG in DEXTROSE 5% WATER 50 ML IV SCH ×2 (10:26→21:19)
[2018-12-21] MEDS: RASAGILINE MESYLATE 0.5 MG PO SCH (10:27)
[2018-12-21] MEDS: ZINC SULFATE 220 MG ( 50 ) CAPSULE PO SCH (10:27)
[2018-12-21] MEDS: AMLODIPINE 5MG TABLET PO SCH (10:28)
[2018-12-21] MEDS: MULTIVITAMINS,THER W-MINERALS TABLET PO SCH (10:28)
[2018-12-21] MEDS: GUAIFENESIN 600MG ER TABLET PO SCH ×2 (10:30→21:20)
[2018-12-21 12:00] VITALS: BP 106/64
[2018-12-21] MEDS: DEXT 5%/0.45% NACL 1000ML 1,000 ML IV SCH (13:24)
[2018-12-21] MEDS: ACETAMINOPHEN 325MG TABLET PO PRN (13:24)
[2018-12-21] MEDS: ASCORBIC ACID 250 MG TABLET PO SCH ×2 (13:31→21:20)
[2018-12-21 16:00] VITALS: BP 131/57
[2018-12-21 20:00] VITALS: BP 149/80
[2018-12-21] MEDS: ENOXAPARIN 40MG/0.4ML SYR SUBCUT SCH (21:19)
[2018-12-22 04:00] VITALS: BP 138/57
[2018-12-22] MEDS: ATENOLOL 50 MG TABLET PO SCH (05:57)
[2018-12-22] MEDS: METRONIDAZOLE 500 MG PREMIX 100 ML IV SCH ×3 (05:57→21:37)
[2018-12-22] MEDS: ROPINIROLE HCL 1MG TABLET PO SCH ×3 (05:57→21:37)
[2018-12-22] MEDS: DEXT 5%/0.45% NACL 1000ML 1,000 ML IV SCH ×2 (05:58→15:04)
[2018-12-22 07:39] LABS: BASOPHILS % 0.3 % (0.0-2.0); EOSINOPHILS % 1.6 % (0.0-5.0); HEMATOCRIT. 28.1 % (42.0-52.0); HEMOGLOBIN. 9.4 g/dL (14.0-18.0); LYMPHOCYTES % 8.3 % (20.0-50.0); MEAN CORPUSCULAR HEMOGLOBIN 32.9 pg (28.0-32.0); MEAN CORPUSCULAR VOLUME 98.5 fL (80.0-94.0); MEAN PLATELET VOLUME 8.4 fl (7.4-10.4); MONOCYTES % 8.2 % (2.0-8.0); NEUTROPHILS % 81.6 % (40.0-76.0); PLATELET 135 x1000/uL (130-400); RED BLOOD CELL COUNT 2.85 mill/uL (4.7-6.1)
[2018-12-22 08:26] VITALS: BP 108/51
[2018-12-22] MEDS: ASCORBIC ACID 250 MG TABLET PO SCH ×2 (08:44→20:08)
[2018-12-22] MEDS: MULTIVITAMINS,THER W-MINERALS TABLET PO SCH (08:44)
[2018-12-22] MEDS: GUAIFENESIN 600MG ER TABLET PO SCH ×2 (08:44→20:08)
[2018-12-22] MEDS: RASAGILINE MESYLATE 0.5 MG PO SCH (08:44)
[2018-12-22] MEDS: ZINC SULFATE 220 MG ( 50 ) CAPSULE PO SCH (08:44)
[2018-12-22] MEDS: RYTARY PO SCH ×3 (08:45→18:13)
[2018-12-22] MEDS: CEFEPIME 1,000 MG in DEXTROSE 5% WATER 50 ML IV SCH ×2 (08:45→20:08)
[2018-12-22] MEDS: AMLODIPINE 5MG TABLET PO SCH (08:45)
[2018-12-22 12:00] VITALS: BP 110/57
[2018-12-22 16:00] VITALS: BP 114/55
[2018-12-22 20:00] VITALS: BP 113/52
[2018-12-22] MEDS: ENOXAPARIN 40MG/0.4ML SYR SUBCUT SCH (20:08)
[2018-12-23] VITALS: BP 115/50
[2018-12-23 04:00] VITALS: BP 130/50
[2018-12-23] MEDS: ROPINIROLE HCL 1MG TABLET PO SCH ×3 (05:40→22:00)
[2018-12-23] MEDS: METRONIDAZOLE 500 MG PREMIX 100 ML IV SCH ×3 (05:40→21:44)
[2018-12-23] MEDS: ATENOLOL 50 MG TABLET PO SCH (05:40)
[2018-12-23] MEDS: DEXT 5%/0.45% NACL 1000ML 1,000 ML IV SCH ×2 (05:41→16:56)
[2018-12-23 08:00] VITALS: BP 113/60
[2018-12-23 08:58] LABS: BASOPHILS % 0.2 % (0.0-2.0); EOSINOPHILS % 1.8 % (0.0-5.0); HEMATOCRIT. 26.5 % (42.0-52.0); LYMPHOCYTES % 10.9 % (20.0-50.0); MEAN CORPUSCULAR HEMOGLOBIN 33.6 pg (28.0-32.0); MEAN CORPUSCULAR VOLUME 99.1 fL (80.0-94.0); MEAN PLATELET VOLUME 8.9 fl (7.4-10.4); MONOCYTES % 8.3 % (2.0-8.0); NEUTROPHILS % 78.8 % (40.0-76.0); PLATELET 133 x1000/uL (130-400); RED BLOOD CELL COUNT 2.67 mill/uL (4.7-6.1); RED CELL DISTRIBUTION WIDTH 13.9 % (11.6-14.6)
[2018-12-23 09:20] LABS: CHLORIDE 119 mEq/L (98-107)
[2018-12-23] MEDS: MULTIVITAMINS,THER W-MINERALS TABLET PO SCH (09:54)
[2018-12-23] MEDS: ASCORBIC ACID 250 MG TABLET PO SCH ×2 (09:54→20:32)
[2018-12-23] MEDS: ZINC SULFATE 220 MG ( 50 ) CAPSULE PO SCH (09:54)
[2018-12-23] MEDS: RASAGILINE MESYLATE 0.5 MG PO SCH (09:54)
[2018-12-23] MEDS: AMLODIPINE 5MG TABLET PO SCH (09:54)
[2018-12-23] MEDS: RYTARY PO SCH ×3 (09:54→16:55)
[2018-12-23] MEDS: GUAIFENESIN 600MG ER TABLET PO SCH ×2 (09:54→20:32)
[2018-12-23] MEDS: CEFEPIME 1,000 MG in DEXTROSE 5% WATER 50 ML IV SCH ×2 (09:55→20:32)
[2018-12-23 11:55] VITALS: BP 129/54
[2018-12-23 16:00] VITALS: BP 119/55
[2018-12-23 20:00] VITALS: BP 126/59
[2018-12-23] MEDS: ENOXAPARIN 40MG/0.4ML SYR SUBCUT SCH (20:32)
[2018-12-24] VITALS: BP 151/57
[2018-12-24 04:00] VITALS: BP 146/63
[2018-12-24] MEDS: METRONIDAZOLE 500 MG PREMIX 100 ML IV SCH ×3 (05:08→21:18)
[2018-12-24] MEDS: ROPINIROLE HCL 1MG TABLET PO SCH ×3 (06:21→20:57)
[2018-12-24] MEDS: ATENOLOL 25MG TABLET PO SCH (06:21)
[2018-12-24 07:11] LABS: BASOPHILS % 0.5 % (0.0-2.0); EOSINOPHILS % 2.4 % (0.0-5.0); HEMATOCRIT. 28.2 % (42.0-52.0); HEMOGLOBIN. 9.5 g/dL (14.0-18.0); LYMPHOCYTES % 10.4 % (20.0-50.0); MEAN CORPUSCULAR VOLUME 98.4 fL (80.0-94.0); MEAN PLATELET VOLUME 8.7 fl (7.4-10.4); MONOCYTES % 7.2 % (2.0-8.0); NEUTROPHILS % 79.5 % (40.0-76.0); PLATELET 167 x1000/uL (130-400); RED BLOOD CELL COUNT 2.87 mill/uL (4.7-6.1); RED CELL DISTRIBUTION WIDTH 13.9 % (11.6-14.6)
[2018-12-24 07:27] LABS: CHLORIDE 118 mEq/L (98-107)
[2018-12-24 08:00] VITALS: BP 154/60
[2018-12-24] MEDS: RASAGILINE MESYLATE 0.5 MG PO SCH (09:55)
[2018-12-24] MEDS: ZINC SULFATE 220 MG ( 50 ) CAPSULE PO SCH (09:55)
[2018-12-24] MEDS: GUAIFENESIN 600MG ER TABLET PO SCH ×2 (09:55→20:56)
[2018-12-24] MEDS: ASCORBIC ACID 250 MG TABLET PO SCH ×2 (09:55→20:56)
[2018-12-24] MEDS: AMLODIPINE 5MG TABLET PO SCH (09:55)
[2018-12-24] MEDS: MULTIVITAMINS,THER W-MINERALS TABLET PO SCH (09:55)
[2018-12-24] MEDS: RYTARY PO SCH ×3 (09:56→16:58)
[2018-12-24] MEDS: DEXT 5%/0.45% NACL 1000ML 1,000 ML IV SCH ×2 (09:56→20:57)
[2018-12-24] MEDS: CEFEPIME 1,000 MG in DEXTROSE 5% WATER 50 ML IV SCH ×2 (10:27→19:51)
[2018-12-24 12:00] VITALS: BP 122/53
[2018-12-24 14:54] LABS: TOTAL IRON BINDING CAPACITY 193 ug/dL (250-450)
[2018-12-24 16:00] VITALS: BP 123/88
[2018-12-24 20:00] VITALS: BP 147/74
[2018-12-24] MEDS: ENOXAPARIN 40MG/0.4ML SYR SUBCUT SCH (20:56)
[2018-12-25] VITALS: BP 122/45
[2018-12-25 04:00] VITALS: BP 135/49
[2018-12-25] MEDS: ATENOLOL 25MG TABLET PO SCH (05:57)
[2018-12-25] MEDS: METRONIDAZOLE 500MG TABLET PO SCH ×3 (05:57→21:06)
[2018-12-25] MEDS: ROPINIROLE HCL 1MG TABLET PO SCH ×3 (05:57→21:06)
[2018-12-25 06:43] LABS: BASOPHILS % 0.4 % (0.0-2.0); EOSINOPHILS % 3.4 % (0.0-5.0); HEMOGLOBIN. 8.1 g/dL (14.0-18.0); LYMPHOCYTES % 10.8 % (20.0-50.0); MEAN CORPUSCULAR HEMOGLOBIN 33.1 pg (28.0-32.0); MEAN CORPUSCULAR VOLUME 97.6 fL (80.0-94.0); MEAN PLATELET VOLUME 8.9 fl (7.4-10.4); MONOCYTES % 6.4 % (2.0-8.0); PLATELET 138 x1000/uL (130-400); RED BLOOD CELL COUNT 2.46 mill/uL (4.7-6.1); RED CELL DISTRIBUTION WIDTH 13.5 % (11.6-14.6)
[2018-12-25 08:00] VITALS: BP 113/61
[2018-12-25 08:01] LABS: CHLORIDE 116 mEq/L (98-107)
[2018-12-25] MEDS: RYTARY PO SCH ×3 (09:16→16:54)
[2018-12-25] MEDS: RASAGILINE MESYLATE 0.5 MG PO SCH (09:17)
[2018-12-25] MEDS: CEFEPIME 1,000 MG in DEXTROSE 5% WATER 50 ML IV SCH ×2 (09:17→20:52)
[2018-12-25] MEDS: ASCORBIC ACID 250 MG TABLET PO SCH ×2 (09:17→20:53)
[2018-12-25] MEDS: ZINC SULFATE 220 MG ( 50 ) CAPSULE PO SCH (09:17)
[2018-12-25] MEDS: GUAIFENESIN 600MG ER TABLET PO SCH ×2 (09:17→20:53)
[2018-12-25] MEDS: MULTIVITAMINS,THER W-MINERALS TABLET PO SCH (09:17)
[2018-12-25] MEDS: AMLODIPINE 5MG TABLET PO SCH (09:17)
[2018-12-25 12:03] VITALS: BP 112/55
[2018-12-25] MEDS: DEXT 5%/0.45% NACL 1000ML 1,000 ML IV SCH (12:06)
[2018-12-25 16:01] VITALS: BP 114/57
[2018-12-25 20:00] VITALS: BP 145/66
[2018-12-25] MEDS: ENOXAPARIN 40MG/0.4ML SYR SUBCUT SCH (20:54)
[2018-12-26] VITALS: BP 130/80
[2018-12-26 04:00] VITALS: BP 132/57
[2018-12-26 06:38] LABS: BASOPHILS % 0.3 % (0.0-2.0); EOSINOPHILS % 2.7 % (0.0-5.0); HEMATOCRIT. 25.5 % (42.0-52.0); HEMOGLOBIN. 8.7 g/dL (14.0-18.0); LYMPHOCYTES % 13.1 % (20.0-50.0); MEAN CORPUSCULAR HEMOGLOBIN 33.3 pg (28.0-32.0); MEAN CORPUSCULAR VOLUME 97.3 fL (80.0-94.0); MEAN PLATELET VOLUME 8.8 fl (7.4-10.4); MONOCYTES % 6.3 % (2.0-8.0); NEUTROPHILS % 77.6 % (40.0-76.0); PLATELET 160 x1000/uL (130-400); RED BLOOD CELL COUNT 2.62 mill/uL (4.7-6.1); RED CELL DISTRIBUTION WIDTH 13.9 % (11.6-14.6)
[2018-12-26] MEDS: ATENOLOL 25MG TABLET PO SCH (06:43)
[2018-12-26] MEDS: ROPINIROLE HCL 1MG TABLET PO SCH ×3 (06:44→22:22)
[2018-12-26] MEDS: METRONIDAZOLE 500MG TABLET PO SCH ×3 (06:44→22:22)
[2018-12-26 06:51] LABS: CHLORIDE 113 mEq/L (98-107)
[2018-12-26 07:44] VITALS: BP 133/66
[2018-12-26] MEDS: MULTIVITAMINS,THER W-MINERALS TABLET PO SCH (07:53)
[2018-12-26] MEDS: ZINC SULFATE 220 MG ( 50 ) CAPSULE PO SCH (07:53)
[2018-12-26] MEDS: ASCORBIC ACID 250 MG TABLET PO SCH ×2 (07:53→21:11)
[2018-12-26] MEDS: AMLODIPINE 5MG TABLET PO SCH (07:53)
[2018-12-26] MEDS: GUAIFENESIN 600MG ER TABLET PO SCH ×2 (07:53→21:19)
[2018-12-26] MEDS: RASAGILINE MESYLATE 0.5 MG PO SCH (07:53)
[2018-12-26] MEDS: RYTARY PO SCH ×2 (07:54→13:18)
[2018-12-26] MEDS: CEFEPIME 1,000 MG in DEXTROSE 5% WATER 50 ML IV SCH ×2 (07:54→20:59)
[2018-12-26] MEDS: DEXT 5%/0.45% NACL 1000ML 1,000 ML IV SCH (11:36)
[2018-12-26 12:00] VITALS: BP 153/55
[2018-12-26 16:01] VITALS: BP 146/54
[2018-12-26 20:00] VITALS: BP 144/66
[2018-12-26] MEDS: ENOXAPARIN 40MG/0.4ML SYR SUBCUT SCH (20:59)
[2018-12-27] VITALS: BP 139/88
[2018-12-27] MEDS: DEXT 5%/0.45% NACL 1000ML 1,000 ML IV SCH ×2 (01:55→14:40)
[2018-12-27 04:00] VITALS: BP 149/66
[2018-12-27] MEDS: METRONIDAZOLE 500MG TABLET PO SCH ×3 (06:14→21:40)
[2018-12-27] MEDS: ROPINIROLE HCL 1MG TABLET PO SCH ×3 (06:14→21:40)
[2018-12-27] MEDS: ATENOLOL 25MG TABLET PO SCH (06:15)
[2018-12-27 06:31] LABS: BASOPHILS % 0.4 % (0.0-2.0); EOSINOPHILS % 2.5 % (0.0-5.0); HEMATOCRIT. 25.9 % (42.0-52.0); HEMOGLOBIN. 8.9 g/dL (14.0-18.0); LYMPHOCYTES % 15.2 % (20.0-50.0); MEAN CORPUSCULAR HEMOGLOBIN 33.4 pg (28.0-32.0); MEAN CORPUSCULAR VOLUME 97.8 fL (80.0-94.0); MEAN PLATELET VOLUME 9.3 fl (7.4-10.4); MONOCYTES % 8.4 % (2.0-8.0); NEUTROPHILS % 73.5 % (40.0-76.0); PLATELET 151 x1000/uL (130-400); RED BLOOD CELL COUNT 2.65 mill/uL (4.7-6.1); RED CELL DISTRIBUTION WIDTH 13.8 % (11.6-14.6)
[2018-12-27 07:30] VITALS: BP 114/68
[2018-12-27 09:03] LABS: CHLORIDE 109 mEq/L (98-107)
[2018-12-27] MEDS: RYTARY PO SCH ×3 (09:53→17:01)
[2018-12-27] MEDS: RASAGILINE MESYLATE 0.5 MG PO SCH (09:53)
[2018-12-27] MEDS: ZINC SULFATE 220 MG ( 50 ) CAPSULE PO SCH (09:54)
[2018-12-27] MEDS: AMLODIPINE 5MG TABLET PO SCH (09:54)
[2018-12-27] MEDS: CEFEPIME 1,000 MG in DEXTROSE 5% WATER 50 ML IV SCH ×2 (09:54→21:39)
[2018-12-27] MEDS: ASCORBIC ACID 250 MG TABLET PO SCH ×2 (09:54→21:40)
[2018-12-27] MEDS: MULTIVITAMINS,THER W-MINERALS TABLET PO SCH (09:57)
[2018-12-27] MEDS: GUAIFENESIN 600MG ER TABLET PO SCH ×2 (10:00→21:40)
[2018-12-27 12:00] VITALS: BP 154/74
[2018-12-27 16:00] VITALS: BP 133/65
[2018-12-27 20:00] VITALS: BP 140/69
[2018-12-27] MEDS: ENOXAPARIN 40MG/0.4ML SYR SUBCUT SCH (21:40)
[2018-12-28] VITALS: BP_SYST 133; BP_SYST 147; BP_DIAS 65; BP_DIAS 71
[2018-12-28 04:00] VITALS: BP 147/65
[2018-12-28] MEDS: DEXT 5%/0.45% NACL 1000ML 1,000 ML IV SCH ×2 (04:10→17:15)
[2018-12-28] MEDS: ROPINIROLE HCL 1MG TABLET PO SCH ×3 (06:41→21:09)
[2018-12-28] MEDS: ATENOLOL 25MG TABLET PO SCH (06:41)
[2018-12-28 08:00] VITALS: BP 129/50
[2018-12-28] MEDS: RYTARY PO SCH ×3 (09:37→17:15)
[2018-12-28] MEDS: RASAGILINE MESYLATE 0.5 MG PO SCH (09:37)
[2018-12-28] MEDS: ASCORBIC ACID 250 MG TABLET PO SCH ×2 (09:37→21:09)
[2018-12-28] MEDS: MULTIVITAMINS,THER W-MINERALS TABLET PO SCH (09:38)
[2018-12-28] MEDS: ZINC SULFATE 220 MG ( 50 ) CAPSULE PO SCH (09:38)
[2018-12-28] MEDS: AMLODIPINE 5MG TABLET PO SCH (09:38)
[2018-12-28] MEDS: GUAIFENESIN 600MG ER TABLET PO SCH ×2 (09:47→21:09)
[2018-12-28 12:00] VITALS: BP 139/60
[2018-12-28 16:00] VITALS: BP 135/56
[2018-12-28 20:00] VITALS: BP 137/57
[2018-12-28] MEDS: ENOXAPARIN 40MG/0.4ML SYR SUBCUT SCH (21:09)
[2018-12-29] VITALS: BP 123/56
[2018-12-29 04:00] VITALS: BP 146/61
[2018-12-29] MEDS: ROPINIROLE HCL 1MG TABLET PO SCH ×2 (06:37→14:51)
[2018-12-29] MEDS: DEXT 5%/0.45% NACL 1000ML 1,000 ML IV SCH (06:37)
[2018-12-29] MEDS: ATENOLOL 25MG TABLET PO SCH (06:37)
[2018-12-29 08:00] VITALS: BP 133/45
[2018-12-29] MEDS: AMLODIPINE 5MG TABLET PO SCH (09:21)
[2018-12-29] MEDS: RASAGILINE MESYLATE 0.5 MG PO SCH (09:21)
[2018-12-29] MEDS: RYTARY PO SCH ×3 (09:21→17:00)
[2018-12-29] MEDS: ZINC SULFATE 220 MG ( 50 ) CAPSULE PO SCH (09:21)
[2018-12-29] MEDS: ASCORBIC ACID 250 MG TABLET PO SCH (09:21)
[2018-12-29] MEDS: MULTIVITAMINS,THER W-MINERALS TABLET PO SCH (09:21)
[2018-12-29] MEDS: GUAIFENESIN 600MG ER TABLET PO SCH (09:25)
[2018-12-29 12:00] VITALS: BP 136/51
[2018-12-29 16:00] VITALS: BP 131/74
== END 2018-12-29 19:35 | disposition left against medical advice (07) | DRG 720 ==
LOC: ER 19:13 → 8WST 12-17 00:37 → EDBEDREQDT 12-17 00:41 → EDBEDREQ 12-17 00:41 → EDBEDREQTM 12-17 00:41 → CANRESERV 12-17 13:16 → ENRESERV 12-17 13:16
PROVIDERS: ADMIT Internal Medicine; ATTEND Internal Medicine
DX: A41.9 Sepsis, unspecified organism (principal); N17.0 Acute kidney failure with tubular necrosis; J69.0 Pneumonitis due to inhalation of food and vomit; I47.2 Ventricular tachycardia; E44.0 Moderate protein-calorie malnutrition; D69.6 Thrombocytopenia, unspecified; E11.22 Type 2 diabetes mellitus with diabetic chronic kidney disease; E87.5 Hyperkalemia; E87.8 Other disorders of electrolyte and fluid balance, not elsewhere classified; G20 Parkinson's disease; F41.9 Anxiety disorder, unspecified; D64.9 Anemia, unspecified; E87.6 Hypokalemia; K63.5 Polyp of colon; R47.02 Dysphasia; R13.10 Dysphagia, unspecified; E87.0 Hyperosmolality and hypernatremia; N18.2 Chronic kidney disease, stage 2 (mild); I49.3 Ventricular premature depolarization; I12.9 Hypertensive chronic kidney disease with stage 1 through stage 4 chronic kidney disease, or unspecified chronic kidney disease; F02.80 Dementia in other diseases classified elsewhere, unspecified severity, without behavioral disturbance, psychotic disturbance, mood disturbance, and anxiety; Z53.21 Procedure and treatment not carried out due to patient leaving prior to being seen by health care provider; K83.8 Other specified diseases of biliary tract; K76.9 Liver disease, unspecified; N28.1 Cyst of kidney, acquired; Z99.3 Dependence on wheelchair; Z87.01 Personal history of pneumonia (recurrent); Z82.49 Family history of ischemic heart disease and other diseases of the circulatory system; Z68.28 Body mass index [BMI] 28.0-28.9, adult; Z88.8 Allergy status to other drugs, medicaments and biological substances
CPT/HCPCS: 36415; 71045; 76700; 80048; 82140; 82728; 82962; 83036; 83540; 83550; 83735; 84134; 92610; 93005; 93306; 93970; 96365; 96374; 96375; A6261; C1893; J0692; J1650; J1815; J3490; J7060; J7620; A4315